=== PATIENT | female | born 1990 ===

== ENCOUNTER 2022-12-24 15:38 | Emergency (ER) | payer OTHER, SELFPAY ==
[2022-12-24] MEDS ORDERED: Acetaminophen 500 MG TAB ONE ×2 (17:33→17:37)
[2022-12-24 17:46] LABS: SARS-CoV-2 NAA Rapid Test DETECTED (NotDetected)
== END 2022-12-24 18:01 | disposition home or self-care (01) ==
LOC: CSHERS 15:38
DX: U07.1 COVID-19 (principal)
CPT/HCPCS: 87081; 87430; 99284